=== PATIENT | female | born 1935 | race Caucasian/White ===

== ENCOUNTER → 2018-02-03 13:25 | Outpatient (CLI) | payer MEDICARE ==
[~2018-02-03 13:25] MED LIST: ANUSOL-HC25 MG RC; BAYER CHEWABLE81 MG PO; CRESTOR20 MG PO; HYDROCHLOROTHIA25 MG PO; KEPPRA250 MG PO; MIRALAX17 GM PO; NORVASC2.5 MG PO; OXYBUTYNIN CHLOR5 MG PO; PLAVIX75 MG PO; PROTONIX40 MG PO; REMERON15 MG PO; REQUIP0.5 MG PO; ULTRAM50 MG PO
[2018-02-03 14:26] LABS: APPEARANCE CLEAR (CLEAR); COLOR YELLOW (YELLOW)
[2018-02-03 14:29] LABS: SPECIFIC GRAVITY 1.015 (1.005-1.020)
[2018-02-03 14:30] LABS: BILIRUBIN NEGATIVE (NEGATIVE); GLUCOSE NEGATIVE (NEGATIVE); KETONE NEGATIVE (NEGATIVE); NITRITE NEGATIVE (NEGATIVE); PROTEIN NEGATIVE (NEGATIVE); UROBILINOGEN NORMAL (NORMAL)
[2018-04-08 21:34] VITALS: BMI 25.1
== END | disposition home or self-care (01) ==
LOC: D.LABREF 13:25
PROVIDERS: Legal Medicine
DX: R41.82 Altered mental status, unspecified (principal)

== ENCOUNTER 2018-04-08 21:29 | Emergency (ER) | payer MEDICARE ==
[~2018-04-08] VITALS: Ht 170.2 cm; Wt 72.7 kg
[2018-04-08 21:34] VITALS: Ht 170.2 cm; Wt 72.7 kg
[2018-04-08] MEDS ORDERED: BAYER CHEWABLE81 MG PO (21:35)
[2018-04-08] MEDS ORDERED: CRESTOR20 MG PO (21:36)
[2018-04-08] MEDS ORDERED: OXYBUTYNIN CHLOR5 MG PO (21:36)
[2018-04-08] MEDS ORDERED: ANUSOL-HC25 MG RC (21:36)
[2018-04-08] MEDS ORDERED: HYDROCHLOROTHIA25 MG PO (21:36)
[2018-04-08] MEDS ORDERED: NORVASC2.5 MG PO (21:37)
[2018-04-08] MEDS ORDERED: KEPPRA250 MG PO (21:37)
[2018-04-08] MEDS ORDERED: PLAVIX75 MG PO (21:37)
[2018-04-08] MEDS ORDERED: REMERON15 MG PO (21:37)
[2018-04-08] MEDS ORDERED: ULTRAM50 MG PO (21:38)
[2018-04-08] MEDS ORDERED: PROTONIX40 MG PO (21:38)
[2018-04-08] MEDS ORDERED: REQUIP0.5 MG PO (21:38)
[2018-04-08 23:22] LABS: BASOPHILS 0.7 % (0-2); HEMATOCRIT 43.6 % (36.0-48.0); HEMOGLOBIN 14.2 g/dL (12-16); IMMATURE GRANULOCYTES 0.1 % (0-5); LYMPHOCYTES 30.9 % (15-50); MCH 29.5 pg (26.0-34.0); MCHC 32.6 g/dL (31.0-37.0); MCV 90.6 fL (80.0-100.0); MEAN PLATELET VOLUME 9.8 fL (7.4-10.4); MONOCYTES 6.9 % (2-11); NEUTROPHILS 57.4 % (40-80); PLATELET COUNT 272 10x3/uL (130-400); RBC 4.81 10x6/uL (4.00-5.40); RDW 14.1 % (11.5-14.5); WBC 8.6 10x3/uL (4.8-10.8)
[2018-04-08 23:40] LABS: ALBUMIN 2.8 g/dL (3.4-5.0); ANION GAP 16.1 mmol/L (8-16); BILIRUBIN - TOTAL 0.41 mg/dL (0.2-1.3); CALCIUM 9.9 mg/dL (8.5-10.1); CARBON DIOXIDE 27.4 mmol/L (21.0-32.0); CREATININE - SERUM 1.4 mg/dL (0.6-1.3); POTASSIUM - SERUM 3.5 mmol/L (3.5-5.1); PROTEIN - SERUM 7.9 g/dL (6.4-8.2)
[2018-04-09 00:06] LABS: INR 1.02 (0.85-1.17)
[2018-04-09] MEDS ORDERED: MIRALAX17 GM PO (00:09)
[2018-04-09 01:23] VITALS: BP 135/57
== END 2018-04-09 01:24 ==
LOC: D.ER 21:29
PROVIDERS: Emergency Medicine
DX: K64.4 Residual hemorrhoidal skin tags (principal); K59.00 Constipation, unspecified; I10 Essential (primary) hypertension; K21.9 Gastro-esophageal reflux disease without esophagitis